=== PATIENT | female | born 1940 | race African-American/Black ===

== ENCOUNTER 2016-07-27 08:51 | Emergency (ER) | payer OTHER, MEDICAID ==
[~2016-07-27] VITALS: Ht 157.5 cm; Wt 72.6 kg
[~2016-07-27 08:51] MED LIST: ACETAMINOPHEN500 M3 ORAL; AMLODIPINE BESYL5 MG ORAL; KEFLEX500 MG ORAL; OMEPRAZOLE20 M2 ORAL
[2016-07-27 09:26] VITALS: BP 121/65
--- NOTE | 2016-07-27 09:26 | Emergency Room Report ---
History of Present Illness General Chief Complaint: Pain Source: Patient, Family Member Present Illness HPI Patient presents as a week of left knee pain. She stepped off of a curb and twisted the knee somehow. She's took a Vicodin a week ago. The swelling has been intermittent and varies with Dr. she is. She was upstairs in has had more pain with this recently. She's used elastic support which helps with the pain. Denies any fevers, shortness of breath. The pain is 7/10 and radiates up into the back thigh region. In addition to that she has some pain in her heel and she is walking differently. She denies any numbness. No fever, NVD, dysuria, cough, chest pain, calf swelling or pain. Allergies: Coded Allergies: No Known Allergies (Unverified , 03/09/12) Patient History Past Medical History: see triage record Social History Narrative at home up stairs Reviewed Nursing Documentation: PMH: Agreed, PSxH: Agreed Nursing Documentation-PMH Past Medical History: No History, Except For Hx Hypertension: Yes Hx Cancer: No Hx Gastrointestinal Problems: No Hx Neurological Problems: Yes Hx Dizziness: Yes Review of Systems All Other Systems: negative except mentioned in HPI Physical Exam Vital Signs Date Time Temp Pulse Resp B/P Pulse Ox O2 Delivery O2 Flow Rate FiO2 07/27/16 09:01 97.7 72 16 121/65 97 Room Air Sp02 EP Interpretation: reviewed, normal General Appearance: normal inspection, well appearing, no apparent distress Head: normocephalic, atraumatic Eyes: bilateral eye PERRL, bilateral eye normal inspection ENT: hearing grossly normal, normal voice Neck: full range of motion, supple Respiratory: no respiratory distress, speaking full sentences Cardiovascular #2: 2+ dorsalis pedis (L) Musculoskeletal: digits/nails normal, no calf tenderness, pelvis stable, decreased range of mation - L knee - flexion. Normal extension., swelling - but no sig effusion L, medial lig min laxity, no drawer, some Applies (but also heel pain) Neurologic: alert, oriented x3, motor strength/tone normal, sensory intact Psychiatric: mood/affect normal Skin: no rash, other - no erythema or warmth over knee Medical Decision Making Diagnostic Impression: Primary Impression: Knee sprain Qualified Codes: S83.92XA - Sprain of unspecified site of left knee, initial encounter Additional Impression: Osteoarthritis Qualified Codes: M17.0 - Bilateral primary osteoarthritis of knee ER Course The patient presents with a week of left knee pain. Differential is fracture, effusion, strain, cartilage injury. Exam is against the ladder. X-rays will be obtained and also Motrin given. Immobilizer placed by tech. Position excellent and leading to decreased pain. Neurovasc checked by me and normal. Patient stable for outpatient observation and treatment. Other X-Ray Diagnostic Results Other X-Ray Diagnostic Results : X-Ray Ordered: L knee EP Interpretation: Yes Findings: no fractures, no dislocation, other - STS and DJD Number of Views: 3 Status: improved Disposition: HOME, SELF-CARE Condition: Improved Scripts Ibuprofen* (MOTRIN*) 600 Mg Tablet 600 MG ORAL Q6H Y for For Pain, #20 TAB Prov: Devon Cisse M.D. 07/27/16 Tramadol Hcl* (ULTRAM*) 50 Mg Tablet 50 MG ORAL Q6H Y for For Pain, #14 TAB 0 Refills Prov: Devon Cisse M.D. 07/27/16 Devon Cisse M.D. Jul 27, 2016 09:26
[2016-07-27] MEDS ORDERED: IBUPROFEN600 MG ORAL (10:13)
[2016-07-27] MEDS ORDERED: TRAMADOL HCL50 MG ORAL (10:13)
[2016-07-27 10:34] VITALS: BP 126/67
[2016-07-27 10:36] VITALS: BP 126/67
--- NOTE | 2016-07-27 16:12 | Diagnostic Imaging Report ---
Indication: TRAUMA Technique: 3 views of the left knee Comparison: None Findings:No acute fractures. No dislocations. Joint spaces are preserved. There are degenerative proliferative changes. No suprapatellar effusion Impression:Degenerative changes. No acute bony trauma
== END 2016-07-27 10:40 | disposition home or self-care (01) ==
LOC: EMR 09:36
DX: S83.92XA Sprain of unspecified site of left knee, initial encounter (principal); X50.1XXA Overexertion from prolonged static or awkward postures, initial encounter; Y92.488 Other paved roadways as the place of occurrence of the external cause; I10 Essential (primary) hypertension; M17.12 Unilateral primary osteoarthritis, left knee
CPT/HCPCS: 29530; 99284